=== PATIENT | male | born 1990 | race Hispanic/Latino ===

== ENCOUNTER 2024-11-29 09:10 | Emergency (ER) | payer MEDICAID, OTHER ==
[~2024-11-29] VITALS: Ht 167.6 cm; Wt 119.3 kg
[2024-11-29 09:32] LABS: IMMATURE GRANULOCYTE ABSOLUTE 0.04 K/uL (0-1); NUCLEATED RED BLOOD CELLS 0.0 % (0.0-0.19); PLATELET COUNT (AUTO) 234 K/uL (130-400); RED BLOOD CELL COUNT(AUTO) 5.29 MIL/uL (4.50-6.20); RED CELL DISTRIBUTION WIDTH 12.8 % (11.0-15.5); WHITE BLOOD COUNT (AUTO) 8.9 K/uL (4.8-10.8)
--- NOTE | 2024-11-29 09:38 | EKG ---
[facility] Test Date: 2024-11-29 Test Time: 09:33:15 Pat Name: MAIKEL MOORE Department: ED Room: Gender: M Senior [employer]: [id number] : 1990 Requested By: KENNY TOMAS Order Number: [id number] Reading MD: Jung Rockwell Measurements Intervals [place] Rate: 58 P: 24 NC: 142 QRS: 6 QRSD: 117 T: 28 QT: 405 QTc: 399 Interpretive Statements Sinus rhythm Nonspecific intraventricular conduction delay Probable lateral infarct, old ST ELEV, PROBABLE NORMAL EARLY REPOL PATTERN No previous ECG available for comparison Electronically Signed On 11-29-2024 19:50:57 CDT by Jung Rockwell Please click the below link to view image of tracing.
[2024-11-29 09:45] LABS: CREATININE 0.9 mg/dL (0.5-1.3); GLOMERULAR FILTR. RATE CALC 116.0 mL/min (>90); GLUCOSE,RANDOM 127.0 mg/dL (70-105); SODIUM SERUM 139.0 mmol/L (136-145); UREA NITROGEN, BLOOD 12.0 mg/dL (7-18)
[2024-11-29 09:50] LABS: CREATINE KINASE, TOTAL 179.0 U/L (21-232); INR 1.03 (0.85-1.15)
--- NOTE | 2024-11-29 10:01 | HMCIMG ---
Examination: Chest, 1 view Clinical history: Chest pain Comparison: None Findings: AP view of the chest is submitted. Lungs are clear. No pleural effusion or pneumothorax. Heart size and pulmonary vessels are within normal limits. Impression: No acute cardiopulmonary process. /[place]
--- NOTE | 2024-11-29 10:17 | ERN ---
General Chief Complaint: Palpitations Stated Complaint: PALPITATIONS Time Seen by MD: 09:11 Source: patient History of Present Illness Initial Comments Patient is a 34-year-old male coming in stating that he has been having palpitations since yesterday. He states that he has not had these symptoms before but he feels his heart racing. No shortness of breath or chest pain. Allergies: Coded Allergies: No Known Drug Allergies (Unverified Allergy, Unknown, 11/29/24) Past Medical History Past Medical History: No Pertinent History Medical History Other: denies pmhx Past Surgical History: None ROS Dictation CONSTITUTIONAL: No chills, no fever, no weakness, no diaphoresis, no malaise. HEAD/FACE: No signs of trauma. EENT: No eye pain, no blurred vision, no tearing, no double vision, no ear pain, no ear discharge, no nose pain, no nasal congestion, no throat pain, no throat swelling, no mouth pain. RESPIRATORY: No cough, no orthopnea, no SOB, no stridor, no wheezing. CARDIOVASCULAR: No chest pain, no edema, no palpitations, no syncope. GASTROINTESTINAL/ABDOMINAL: No abdominal pain, no constipation, no diarrhea, no nausea, no vomiting. GENITOURINARY: No abnormal discharge, no dysuria, no frequent urination, no hematuria. No complaints of pain in the genitals. MUSCULOSKELETAL: No back pain, no gout, no joint pain, no joint swelling, no muscle pain, no muscle stiffness, no neck pain. INTEGUMENTARY: No change in color, no change in hair/nails, no dryness, no lesion, no lumps, no rash. NEUROLOGICAL/PSYCH: No anxiety, not depressed, no emotional problem, no headache, no numbness, no pre-existing deficit, no history of seizures, no tremors, no weakness. HEMATOLOGIC/LYMPHATIC: Not anemic, no history of blood clots, no apparent bleeding, no bruising, glands not swollen. All Systems Negative, Except as Noted. Physical Exam Physical Exam Dictation VITAL SIGNS: Reviewed. GENERAL APPEARANCE: Alert, oriented x3, no acute distress, obese. HEAD AND FACE: Non-traumatic. EYES: PERRL, pink conjunctivas, eyelid no trauma, anterior chamber clear. EARS: Pinnas intact and no signs of trauma or erythema. Ear canals clear and no discharge. TMs no erythema. NOSE: No discharge, no bleeding. OROPHARYNX: Mouth normal, teeth no caries, tongue pink. Pharynx clear, no erythema. Tonsils no exudates, no abscesses noted. Mucous membrane moist. NECK: Supple, non-tender, no thyromegaly, no masses, no JVD, no bruits. BREAST: Deferred. CHEST: No tenderness, no crepitus, no paradoxical movement, no retractions. LUNGS: Clear, well-ventilated, symmetric, no rales, no wheezing, no rhonchi, no stridor, good breath sounds bilaterally. HEART: Regular rate, regular rhythm, no murmur, no gallops. VASCULAR: No peripheral edema. ABDOMEN: Soft, positive bowel sounds, nondistended, no guarding, nontender, no rebound, no masses no hepatomegaly, no splenomegaly, no Ferreira's sign, no hernias. RECTAL: Deferred. GENITAL: Deferred. NEUROLOGICAL: Normal speech, gross motor function intact, gross sensory function intact. MUSCULOSKELETAL: Neck nontender, full range of motion, back nontender, full range of motion. EXTREMITIES: Nontender, full range of motion. SKIN: Color pink, dry, no turgor, no rash, no lacerations, no abrasions, no contusions. LYMPHATICS: Deferred. Results Laboratory and Microbiology Lab and Micro Result Laboratory Tests Test 11/29/24 09:24 11/29/24 10:21 White Blood Count 8.9 K/uL (4.8-10.8) Red Blood Count 5.29 MIL/uL (4.50-6.20) Hemoglobin 15.0 g/dL (14.0-18.0) Hematocrit 44.0 % (42-54) Mean Corpuscular Volume 83.2 fL (79-99) Mean Corpuscular Hemoglobin 28.4 pg (27.0-33.0) Mean Corpuscular Hemoglobin Concent 34.1 g/dL (32.0-36.0) Red Cell Distribution Width 12.8 % (11.0-15.5) Platelet Count 234 K/uL (130-400) Mean Platelet Volume 9.6 fL (7.5-10.5) Immature Granulocyte % (Auto) 0.5 % (0-1) Neutrophils (%) (Auto) 61.0 % (40.0-77.0) Lymphocytes (%) (Auto) 28.2 % (21.0-51.0) Monocytes (%) (Auto) 7.8 % (3.0-13.0) Eosinophils (%) (Auto) 2.0 % (0.0-8.0) Basophils (%) (Auto) 0.5 % (0.0-5.0) Neutrophils # (Auto) 5.4 K/uL (1.8-7.7) Lymphocytes # (Auto) 2.5 K/uL (1.0-4.8) Monocytes # (Auto) 0.7 K/uL (0.1-1.0) Eosinophils # (Auto) 0.18 K/uL (0.00-0.70) Basophils # (Auto) 0.04 K/uL (0.00-0.20) Absolute Immature Granulocyte (auto 0.04 K/uL (0-1) Nucleated Red Blood Cells 0.0 % (0.0-0.19) Prothrombin Time 10.9 SEC (9.6-11.6) Prothromb Time International Ratio 1.03 (0.85-1.15) Activated Partial Thromboplast Time 28.8 SEC (26.3-35.5) Sodium Level 139 mmol/L (136-145) Potassium Level 4.1 mmol/L (3.5-5.1) Chloride Level 103 mmol/L (101-111) Carbon Dioxide Level 32 mmol/L (21-32) Blood Urea Nitrogen 12 mg/dL (7-18) Creatinine 0.9 mg/dL (0.5-1.3) Glomerular Filtration Rate Calc 116 mL/min (>90) Random Glucose 127 mg/dL (70-105) H Total Calcium 8.7 mg/dL (8.5-10.1) Magnesium Level 1.90 mg/dL (1.80-2.40) Total Creatine Kinase 179 U/L (21-232) Troponin I High Sensitivity < 4 ng/L (4-75) L Urine Opiates Screen NEGATIVE (NEGATIVE) Urine Barbiturates Screen NEGATIVE (NEGATIVE) Urine Phencyclidine Screen NEGATIVE (NEGATIVE) Urine Amphetamines Screen NEGATIVE (NEGATIVE) Urine Benzodiazepines Screen NEGATIVE (NEGATIVE) Urine Cocaine Screen NEGATIVE (NEGATIVE) Urine Marijuana (THC) Screen NEGATIVE (NEGATIVE) Labs Reviewed?: Yes EKG/XRAY/US/CT/MRI EKG Comment 11/29/2024 time 9:33 a.m. Ventricular rate 58 Sinus rhythm NC [address] wave elevation or depression X-RAY Comment IMAGING REPORT Signed PATIENT: MAIKEL MOORE MR#: [id number] : 1990 SEX: M AGE: 34 LOCATION: [facility] ORDER 3 STATUS: [facility] ER REPORT#: [id number] SERVICE 1 REASON: cp ORDERING PHYSICIAN: KENNY TOMAS MD PROCEDURE: CXR1VW - CHEST 1VW Examination: Chest, 1 view Clinical history: Chest pain Comparison: None Findings: AP view of the chest is submitted. Lungs are clear. No pleural effusion or pneumothorax. Heart size and pulmonary vessels are within normal limits. Impression: No acute cardiopulmonary process. /[place] DICTATED BY: CHAYO GAGNON Jr., MD DATE: 11/29/241100 ELECTRONICALLY SIGNED BY: CHAYO GAGNON Jr., MD DATE: 11/29/241100 [facility] MDM: Differential diagnosis: Palpitations, gastritis Rationale: Tests considered and ordered secondary to shared decision making include: Previous outside records reviewed: Old ER visits. Risk of complication and/or morbidity or mortality of patient management: None Medications-Per medication reconciliation Need for hospitalization: Patient does not meet criteria for hospitalization. Need for emergency major/minor surgery: No Patient is a 34-year-old gentleman coming in stating that he had palpitations earlier. Laboratory workup EKG and cardiac monitoring negative. 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 Patient will be discharged in stable condition and has been stable throughout ER visit. ED Course Orders Procedure Category Date Status Time Cbc With Differential LAB 11/29/24 Complete 09:12 Prothrombin Time With LAB 11/29/24 Complete INR 09:12 Chest 1vw RAD 11/29/24 Resulted 09:12 12 Lead Ekg Tracing- EKG 11/29/24 Complete Technical 09:12 Magnesium LAB 11/29/24 Complete 09:12 Creatine Kinase, Total LAB 11/29/24 Complete 09:12 Troponin I High LAB 11/29/24 Complete Sensitivity 09:12 Partial LAB 11/29/24 Complete Thromboplastin Time 09:12 Basic Metabolic Panel LAB 11/29/24 Complete 09:12 Drug Screen Urine LAB 11/29/24 Complete 09:39 Pantoprazole 40mg Inj PHA 11/29/24 Complete (Protonix 40mg Inj 11:30 Lidocaine Hcl 2% PHA 11/29/24 Complete Viscous (Lidocaine Hcl 11:30 Mag/Alum/Simeth 30ml PHA 11/29/24 Complete (Maalox Plus 30ml) 11:30 Mag/Alum/Simeth 30ml PHA 11/29/24 Complete (Maalox Plus 30ml) 11:29 Lidocaine Hcl 2% PHA 11/29/24 Complete Viscous (Lidocaine Hcl 11:30 Current Medications Medications (Trade) Dose Ordered Sig/Tien Route PRN Reason Start Time Stop Time Status Last Admin Dose Admin Al Hydroxide/Mg Hydroxide (MAALox PLUS 30ML) 30 ml ONCE ONCE PO 11/29/24 11:30 11/29/24 11:31 DC 11/29/24 11:30 Al Hydroxide/Mg Hydroxide (MAALox PLUS 30ML) 30 ml STK-MED ONCE .ROUTE 11/29/24 11:29 11/29/24 11:30 DC Lidocaine HCl (Lidocaine HCl 2% Viscous) 10 ml ONCE ONCE PO 11/29/24 11:30 11/29/24 11:31 DC 11/29/24 11:30 Lidocaine HCl (Lidocaine HCl 2% Viscous) 15 ml STK-MED ONCE .ROUTE 11/29/24 11:30 11/29/24 11:30 DC Pantoprazole Sodium (PROTonix 40MG INJ) 40 mg ONCE ONCE IVP 11/29/24 11:30 11/29/24 11:28 DC Vital Signs Date Time Temp Pulse Resp B/P (MAP) Pulse Ox O2 Delivery O2 Flow Rate FiO2 11/29/24 09:58 99.0 76 12 145/70 99 Room Air* 0 21 11/29/24 09:17 97.5 66 18 149/86 99 Room Air* 0 21 11/29/24 09:12 97.5 66 18 149/86 99 Room Air 0 DX & DISP Disposition: Discharge Departure Impression: Primary Impression: Intermittent palpitations Condition: Stable Additional Instructions: You have been reviewed in the emergency department at [facility] after presenting with chest pain. After considering your history, your risk factors, your EKG and your blood test troponins, have been found to be at very low risk less than (1 in 100) of having a major adverse cardiac event (like heart attack) in the near future. In the " low risk" group, the risks of doing further tests and treatment as the inpatient outweighs the benefits. In many patients in the low risk group for the test of any sort or unnecessary, however he should discuss this further with his general practitioner who will understand the medical and personal backgrounds better. Because we have never declared you" no risk" we would suggest. 1 returning for medical review if you have further episodes of chest pain/arm pain or other concerning symptoms like dizziness, collapse, palpitations or shortness of breath. 2. Following up with your local doctor who will consider the need for further testing and will also ensure that any modifiable risk factors you may have for heart disease are optimally managed. Patient will be discharged in stable condition at the moment discharge patient states , no chest pain Referrals: SELF,REFERRAL (PCP) CLOVER JAMES MD, LUIS A MD Time of Disposition: 12:01 KENNY TOMAS MD Nov 29, 2024 10:17
[2024-11-29 11:13] LABS: AMPHET/METH SCREEN,URINE NEGATIVE (NEGATIVE); BARBITURATE SCREEN, URINE NEGATIVE (NEGATIVE); CANNABINOID SCREEN,URINE NEGATIVE (NEGATIVE); COCAINE SCREEN,URINE NEGATIVE (NEGATIVE)
[2024-11-29] MEDS ORDERED: MAG/ALUM/SIMETH 30 ML UDCUP ONE (11:29)
[2024-11-29] MEDS ORDERED: LIDOCAINE HCL 2% VISCOUS 15 ML UDCUP ONE (11:30)
[2024-11-29] MEDS: LIDOCAINE HCL 2% VISCOUS 15 ML UDCUP PO ONE (11:30)
[2024-11-29] MEDS: MAG/ALUM/SIMETH 30 ML UDCUP PO ONE (11:30)
[2024-11-29 12:04] VITALS: BP 146/82; PULSE 63; RESP 12; TEMP 99; O2SAT 98
== END 2024-11-29 12:08 | disposition home or self-care (01) ==
LOC: EDH 09:10
DX: R00.2 Palpitations (principal)
CPT/HCPCS: 36415; 71045; 80048; 80305; 82550; 83735; 84484; 85025; 85610; 85730; 93005; 99285